=== PATIENT | female | born 1950 | race Two or more races ===

== ENCOUNTER → 2017-02-11 | Outpatient (CLI) | payer OTHER ==
[~2017-02-11] MED LIST: 3N1 COMMODE MC; ASPI-781 PO; CELE200C PO; CPM MC; DOCU-144 PO; GLYB1TAB2 PO; LOSA50TA6 PO; NA P133E3 PR; OMEP20CA16 PO; OXYC-481 PO; TRAM50TA2 PO; WALK1EAC23 MC
--- NOTE | 2017-02-11 16:21 | RADRPT ---
PROCEDURE: Right knee radiographs. CLINICAL INDICATION: Right knee pain. Postop. TECHNIQUE: Three views. Weight bearing. Frontal, lateral, and patellar view. COMPARISON: 02/13/2016. FINDINGS: There is no fracture or dislocation. The soft tissues are normal. There is a total right knee arthroplasty which appears satisfactory. There is no lytic or blastic lesion. IMPRESSION: 1. Satisfactory postoperative appearance of the right knee. RPTAT: QQ .Baldev Healy MD, MD Date Time Electronically viewed and signed by .Baldev Healy MD, MD on 02/11/2017 16:21 .R/
== END | disposition home or self-care (01) ==
LOC: HKI 10:32
PROVIDERS: ATTEND Orthopaedic Surgery
DX: Z47.89 Encounter for other orthopedic aftercare (principal); Z96.651 Presence of right artificial knee joint
CPT/HCPCS: 73562; Z7500; G0463